=== PATIENT | male | born 1955 | race Caucasian/White ===

== ENCOUNTER 2021-08-26 11:38 | Emergency (ER) | payer OTHER ==
[~2021-08-26] VITALS: Ht 167.6 cm; Wt 75.7 kg
[2021-08-26 12:02] VITALS: BP 146/96
--- NOTE | 2021-08-26 12:05 | NUR ---
DR RICO EVALUATING PT IN TRIAGE
--- NOTE | 2021-08-26 12:11 | NUR ---
CODE STROKE CALLED BY DR RICO
[2021-08-26] MEDS ORDERED: ONDANSETRON 4 MG/2 ML VIAL IVP ONE (12:15)
[2021-08-26] MEDS ORDERED: NACL 0.9% 1,000 ML IV ONE (12:15)
--- NOTE | 2021-08-26 12:16 | NUR ---
PT TAKEN TO CT VIA W/C. 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
--- NOTE | 2021-08-26 13:31 | NUR ---
PT W/C ASSISTED TO ER BED 12 AND CONNECTED TO MONITOR
[2021-08-26 13:51] LABS: BASOPHILS % (AUTO) 0.6 % (0.0-2.0); EOSINOPHILS # (AUTO) 0.1 K/uL (0-0.4); EOSINOPHILS % (AUTO) 1.4 % (0.0-4.0); HEMATOCRIT 43.2 % (36-52); HEMOGLOBIN 15.1 g/dL (12.0-18.0); LYMPHOCYTES # (AUTO) 0.8 K/uL (2.0-11.5); LYMPHOCYTES % (AUTO) 13.9 % (20.5-51.1); MEAN CORPUSCULAR HEMOGLOBIN 29 pg (27-31); MEAN CORPUSCULAR HGB CONC 35 g/dL (33-37); MEAN CORPUSCULAR VOLUME 82.2 fL (80-94); MONOCYTES # (AUTO) 0.5 K/uL (0.8-1.0); MONOCYTES % (AUTO) 8.1 % (1.7-9.3); NEUTROPHILS # (AUTO) 4.3 K/uL (1.8-7.7); PLATELET COUNT (AUTO) 181 K/uL (140-450); RED BLOOD CELL COUNT(AUTO) 5.25 MIL/uL (4.20-6.10); RED CELL DISTRIBUTION WIDTH 13.3 % (11.6-13.7); WHITE BLOOD COUNT (AUTO) 5.6 K/uL (4.8-10.8)
[2021-08-26 14:29] LABS: ANION GAP 14.2 (8-16); CARBON DIOXIDE 29.6 mmol/L (21-32); CREATININE 1.4 mg/dL (0.6-1.3); POTASSIUM 3.8 mmol/L (3.5-5.1); TOTAL BILIRUBIN 1.1 mg/dL (0.0-1.0)
--- NOTE | 2021-08-26 16:27 | NUR ---
PER TELE NEURO REQUEST SENT;CONNECT ID:[id number]
--- NOTE | 2021-08-26 16:30 | NUR ---
PT C/O DIZINESS, N/V LAST SEEN NORMAL 1130. PT GCS 15 HX OF PREVIOUS CVAS. NIHSS 0 AT THIS TIME. IV INSERTED. NAD. SAFETY MAINTAINED.
--- NOTE | 2021-08-26 17:00 | NUR ---
PT ON WITH TELE NEUROLOGY
[2021-08-26 18:32] VITALS: BP 162/85
--- NOTE | 2021-08-26 19:26 | NUR ---
Patient to be transferred to [facility]. Is being transferred due to HIGHER LEVEL OF CARE. Receiving facility has accepting physician and available space. ER physician has signed transfer form. Patient or responsible constitution party has agreed to transfer and signed form. Patient belongings inventoried and will be sent with patient. Copy of nursing notes, lab reports, EKG, Physicians Orders and X-rays to be sent with patient. Report called to ABHAY CHEN at receiving facility. [facility] has been called for transfer. ETA is 15.
== END 2021-08-26 19:37 | disposition short-term general hospital (02) ==
LOC: MED 11:38
DX: R11.2 Nausea with vomiting, unspecified (principal); R51.9 Headache, unspecified; E11.65 Type 2 diabetes mellitus with hyperglycemia; I10 Essential (primary) hypertension; Z86.73 Personal history of transient ischemic attack (TIA), and cerebral infarction without residual deficits
CPT/HCPCS: 36415; 70450; 70496; 70498; 80053; 83735; 84484; 85025; 93005; 96360; 99285; G0482; J7030; Q9967